=== PATIENT | male | born 1965 | race Caucasian/White ===

== ENCOUNTER 2019-09-15 17:31 | Emergency (ER) | payer BC ==
[~2019-09-15] VITALS: Ht 182.9 cm; Wt 158.8 kg
[2019-09-15 20:06] LABS: ABSOLUTE NEUTROPHILS 2.3 thou/uL (1.4-8.2); BASOPHILS 0.9 % (0.0-2.0); EOSINOPHILS 1.7 % (0.0-3.0); HEMATOCRIT 42.3 % (42.0-52.0); HEMOGLOBIN 14.1 gm/dL (14.0-18.0); LYMPHOCYTES 45.5 % (24.0-44.0); MCH 32.7 pg (26.0-34.0); MCHC 33.4 g/dL (28.0-37.0); MCV 97.7 fL (80.0-100.0); MONOCYTES 7.3 % (1.0-8.0); PLATELET COUNT 266 thou/uL (150-400); POLYS 44.6 % (36.0-66.0); RBC 4.33 mil/uL (4.50-6.00); RDW 13.8 % (10.5-14.5); WBC 5.2 thou/uL (4.0-11.0)
[2019-09-15 20:15] LABS: ANION GAP 6 mmol/L (7-16); BUN 15 mg/dL (7-18); CALCIUM 8.5 mg/dL (8.5-10.1); CHLORIDE 105 mmol/L (98-107); CO2 30 mmol/L (21-32); GLUCOSE 104 mg/dL (74-106); POTASSIUM 3.9 mmol/L (3.5-5.1); SODIUM 141 mmol/L (136-145)
[2019-09-15 20:26] LABS: ALBUMIN 3.7 g/dL (3.4-5.0); SGOT 20 U/L (15-37); SGPT 45 U/L (30-65); TOTAL BILIRUBIN 0.4 mg/dL (0.2-1.0); TOTAL PROTEIN 7.4 g/dL (6.4-8.2); TROPONIN-I <0.06 ng/mL (<0.06)
[2019-09-15 20:34] VITALS: BP 154/80
--- NOTE | 2019-09-16 08:01 | EKG ---
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: [facility] : 1965 Requested By: Kendall Westbrook Order Number: [id number] MD: Dorian Sheikh Measurements Intervals [place] Rate: 60 P: 16 [place]: 213 QRS: -4 QRSD: 105 T: 58 QT: 373 QTc: 373 Interpretive Statements Sinus rhythm Prolonged [place] interval T wave abnormality Compared to ECG 08/16/2008 06:59:48 No significant change was found Electronically Signed On 09-16-2019 8:00:50 CDT by Dorian Sheikh [email or web address] <ELECTRONICALLY SIGNED> By: Dorian Sheikh MD, FACC 09/16/19 0800 1756 1756 Dorian Sheikh MD, [facility] /EPI
== END 2019-09-15 20:34 | disposition home or self-care (01) ==
LOC: ER 17:31
PROVIDERS: Emergency Medicine
DX: R20.2 Paresthesia of skin (principal); R11.0 Nausea

== ENCOUNTER 2019-10-26 09:48 | Emergency (ER) | payer BC ==
[~2019-10-26] VITALS: Ht 182.9 cm; Wt 158.8 kg
[2019-10-26] MEDS ORDERED: PROTONIX40 M2 PO (10:00)
[2019-10-26 10:24] LABS: ABSOLUTE NEUTROPHILS 1.9 thou/uL (1.4-8.2); EOSINOPHILS 1.1 % (0.0-3.0); HEMATOCRIT 42.3 % (42.0-52.0); LYMPHOCYTES 40.6 % (24.0-44.0); MCH 32.6 pg (26.0-34.0); MCHC 33.1 g/dL (28.0-37.0); MCV 98.5 fL (80.0-100.0); MONOCYTES 9.3 % (1.0-8.0); PLATELET COUNT 276 thou/uL (150-400); RBC 4.29 mil/uL (4.50-6.00); RDW 13.2 % (10.5-14.5); WBC 3.9 thou/uL (4.0-11.0)
[2019-10-26 10:36] LABS: ANION GAP 6 mmol/L (7-16); BUN 10 mg/dL (7-18); CALCIUM 8.4 mg/dL (8.5-10.1); CHLORIDE 108 mmol/L (98-107); CO2 30 mmol/L (21-32); CREATININE 0.9 mg/dL (0.7-1.3); GLUCOSE 125 mg/dL (74-106); POTASSIUM 4.1 mmol/L (3.5-5.1); SODIUM 144 mmol/L (136-145)
[2019-10-26 10:42] LABS: ALBUMIN 3.4 g/dL (3.4-5.0); SGOT 16 U/L (15-37); SGPT 39 U/L (30-65); TOTAL BILIRUBIN 0.3 mg/dL (0.2-1.0); TOTAL PROTEIN 7.2 g/dL (6.4-8.2); TROPONIN-I <0.06 ng/mL (<0.06)
[2019-10-26] MEDS ORDERED: CYCLOBENZAPRINE5 MG PO (11:14)
[2019-10-26 11:19] VITALS: BP 143/84
--- NOTE | 2019-10-27 11:55 | EKG ---
[facility] [address] [place] [address] ELECTROCARDIOGRAM REPORT Name: IDALIA CURTIS Room #: DEP [facility]#: [id number] Admission: 10/26/19 Attend Phys: Discharge: 10/26/19 Date of : 61 Report #: [id number] THIS REPORT FOR: cc: SNOW Knight family physician/PCP SNOW Knight family physician/PCP Wilfredo Matute MD [facility] THIS REPORT FOR: //name// [facility] ED Test Date: 2019-10-26 Test Time: 10:06:41 Pat Name: IDALIA CURTIS Department: Room: Gender: Kennel Hand: : 1965 Requested By: Francie Portillo Order Number: [id number] MD: Wilfredo Matute Measurements Intervals [place] Rate: 48 P: 26 [place]: 223 QRS: 7 QRSD: 102 T: 27 QT: 426 QTc: 381 Interpretive Statements Sinus bradycardia Borderline T wave abnormalities J-Point elevation anterior leads Compared to ECG 09/15/2019 17:56:29 Sinus rhythm no longer present T-wave abnormality still present Electronically Signed On 10-27-2019 11:55:25 CDT by Wilfredo Matute [email or web address] <ELECTRONICALLY SIGNED> By: Wilfredo Matute MD, [facility] 10/27/19 1155 1006 1006 Wilfredo Matute MD, [facility] /EPI
== END 2019-10-26 11:19 | disposition home or self-care (01) ==
LOC: ER 09:48
PROVIDERS: Emergency Medicine
DX: R07.89 Other chest pain (principal); M54.10 Radiculopathy, site unspecified; K21.9 Gastro-esophageal reflux disease without esophagitis; Z79.899 Other long term (current) drug therapy

== ENCOUNTER 2019-12-30 08:31 | Emergency (ER) | payer BC ==
[~2019-12-30] VITALS: Ht 182.9 cm; Wt 154.2 kg
[~2019-12-30 08:31] MED LIST: CYCLOBENZAPRINE5 MG PO; PROTONIX40 M2 PO
[2019-12-30] MEDS ORDERED: ESCITALOPRAM OX10 MG PO (08:54)
[2019-12-30] MEDS ORDERED: NORVASC5 MG PO (08:54)
[2019-12-30 09:23] LABS: ABSOLUTE NEUTROPHILS 1.3 thou/uL (1.4-8.2); BASOPHILS 1.7 % (0.0-2.0); EOSINOPHILS 1.4 % (0.0-3.0); HEMATOCRIT 41.4 % (42.0-52.0); HEMOGLOBIN 13.6 gm/dL (14.0-18.0); LYMPHOCYTES 49.7 % (24.0-44.0); MCH 31.5 pg (26.0-34.0); MCHC 32.8 g/dL (28.0-37.0); MONOCYTES 8.9 % (1.0-8.0); PLATELET COUNT 257 thou/uL (150-400); POLYS 38.3 % (36.0-66.0); RBC 4.31 mil/uL (4.50-6.00); RDW 13.3 % (10.5-14.5); WBC 3.5 thou/uL (4.0-11.0)
[2019-12-30 09:45] LABS: ANION GAP 8 mmol/L (7-16); BUN 10 mg/dL (7-18); CALCIUM 8.6 mg/dL (8.5-10.1); CHLORIDE 107 mmol/L (98-107); CO2 26 mmol/L (21-32); GLUCOSE 128 mg/dL (74-106); POTASSIUM 3.8 mmol/L (3.5-5.1); SODIUM 141 mmol/L (136-145)
[2019-12-30 09:56] LABS: ALBUMIN 3.4 g/dL (3.4-5.0); SGOT 16 U/L (15-37); SGPT 32 U/L (30-65); TOTAL BILIRUBIN 0.4 mg/dL (0.2-1.0); TOTAL PROTEIN 6.8 g/dL (6.4-8.2); TROPONIN-I <0.06 ng/mL (<0.06)
--- NOTE | 2019-12-30 10:02 | EKG ---
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 : 1965 Requested By: Frank Dukes Order Number: [id number] MD: Wilfredo Matute Measurements Intervals [place] Rate: 50 P: 4 AR: 224 QRS: -3 QRSD: 98 T: 47 QT: 425 QTc: 388 Interpretive Statements Sinus rhythm Prolonged [place] interval Borderline abnrm T, anterolateral leads Compared to ECG 10/26/2019 10:06:41 First degree AV block now present Sinus bradycardia no longer present T-wave abnormality no longer present Electronically Signed On 12-30-2019 10:02:06 DESIGN TECHNOLOGY TEACHER by Wilfredo Matute [email or web address] <ELECTRONICALLY SIGNED> By: Wilfredo Matute MD, FACC 12/30/19 1002 0854 0854 Wilfredo Matute MD, FAC /EPI
[2019-12-30 10:35] LABS: AMP/METHAMP Negative (Negative); BARBITURATES Negative (Negative); BENZODIAZEPINES Negative (Negative); COCAINE Negative (Negative); METHADONE Negative (Negative); OPIATES Negative (Negative); PCP Negative (Negative)
[2019-12-30] MEDS ORDERED: ATIVAN0.5 M1 PO (10:37)
[2019-12-30 11:13] VITALS: BP 141/90
--- NOTE | 2019-12-31 14:37 | EKG ---
[facility] [address] [place] [address] ELECTROCARDIOGRAM REPORT Name: IDALIA CURTIS Room #: DEP 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: : 1965 Requested By: Frank Dukes Order Number: [id number] : Wilfredo Matute Measurements Intervals [place] Rate: 49 P: -19 OR: 222 QRS: 7 QRSD: 95 T: 64 QT: 489 QTc: 442 Interpretive Statements Sinus bradycardia Prolonged [place] interval Borderline T wave abnormalities Baseline wander in lead(s) I,III,aVR,aVL,aVF,V1,V2,V3,V4,V5,V6 Compared to ECG 10/26/2019 10:06:41 First degree AV block now present ST (T wave) deviation now present T-wave abnormality still present Electronically Signed On 12-31-2019 14:37:27 WAVE SOLDER OFFBEARER by Wilfredo Matute [email or web address] <ELECTRONICALLY SIGNED> By: Wilfredo Matute MD, [facility] 12/31/19 1437 1 Wilfredo Matute MD, [facility] /EPI
== END 2019-12-30 11:14 | disposition home or self-care (01) ==
LOC: ER 08:31
PROVIDERS: Emergency Medicine
DX: F41.8 Other specified anxiety disorders (principal); G89.29 Other chronic pain; R07.9 Chest pain, unspecified; R06.00 Dyspnea, unspecified; R20.2 Paresthesia of skin; K21.9 Gastro-esophageal reflux disease without esophagitis; Z79.899 Other long term (current) drug therapy

== ENCOUNTER 2020-02-12 18:45 | Emergency (ER) | payer BC ==
[~2020-02-12] VITALS: Ht 182.9 cm; Wt 90.7 kg
[~2020-02-12 18:45] MED LIST changes: +ATIVAN0.5 M1 PO; +ESCITALOPRAM OX10 MG PO; +NORVASC5 MG PO
[2020-02-12] MEDS ORDERED: CARAFATE1 GM PO (20:23)
[2020-02-12 23:58] VITALS: BP 138/40
--- NOTE | 2020-02-13 15:16 | EKG ---
[place] [address] [facility] [place] [address] ELECTROCARDIOGRAM REPORT Name: IDALIA CURTIS Room #: DEP [facility]#: [id number] Admission: 02/12/20 Attend Phys: Discharge: 02/12/20 Date of : 61 Report #: [id number] [facility] ED Test Date: 2020-02-12 Test Time: 20:01:36 Pat Name: IDALIA CURTIS Department: Room: Gender: M Briquetter Operator: RANDY : 1965 Requested By: Johnnie Mcpherson Order Number: [id number] MD: Dorian Sheikh Measurements Intervals [place] Rate: 61 P: 20 OR: 209 QRS: -6 QRSD: 100 T: 46 QT: 396 QTc: 399 Interpretive Statements Sinus rhythm Ventricular premature complex Borderline prolonged OR interval Borderline T wave abnormalities Compared to ECG 12/30/2019 08:54:31 Ventricular premature complex(es) now present Electronically Signed On 02-13-2020 15:16:29 MUNICIPAL CLERK by Dorian Sheikh [email or web address] <ELECTRONICALLY SIGNED> By: Dorian Sheikh MD, [facility] 02/13/20 1516 00 00 Dorian Sheikh MD, FACC /EPI
== END 2020-02-12 20:50 | disposition home or self-care (01) ==
LOC: ER 18:45
DX: R10.10 Upper abdominal pain, unspecified (principal); K21.9 Gastro-esophageal reflux disease without esophagitis; Z79.899 Other long term (current) drug therapy; Z20.828 Contact with and (suspected) exposure to other viral communicable diseases

== ENCOUNTER 2020-04-08 11:05 | Emergency (ER) | payer BC ==
[~2020-04-08] VITALS: Ht 182.9 cm; Wt 154.2 kg
[~2020-04-08 11:05] MED LIST changes: +CARAFATE1 GM PO
[2020-04-08 11:41] LABS: ABSOLUTE NEUTROPHILS 2.1 thou/uL (1.4-8.2); BASOPHILS 0.8 % (0.0-2.0); EOSINOPHILS 0.8 % (0.0-3.0); HEMATOCRIT 42.8 % (42.0-52.0); HEMOGLOBIN 14.3 gm/dL (14.0-18.0); LYMPHOCYTES 35.8 % (24.0-44.0); MCH 31.5 pg (26.0-34.0); MCHC 33.3 g/dL (28.0-37.0); MCV 94.5 fL (80.0-100.0); PLATELET COUNT 278 thou/uL (150-400); POLYS 53.6 % (36.0-66.0); RBC 4.53 mil/uL (4.50-6.00); RDW 13.9 % (10.5-14.5); WBC 3.9 thou/uL (4.0-11.0)
[2020-04-08 11:47] LABS: ANION GAP 6 mmol/L (7-16); BUN 13 mg/dL (7-18); CALCIUM 8.8 mg/dL (8.5-10.1); CHLORIDE 104 mmol/L (98-107); CO2 30 mmol/L (21-32); CREATININE 1.1 mg/dL (0.7-1.3); GLUCOSE 127 mg/dL (74-106); POTASSIUM 3.8 mmol/L (3.5-5.1); SODIUM 140 mmol/L (136-145)
[2020-04-08 11:57] LABS: ALBUMIN 3.5 g/dL (3.4-5.0); LIPASE 82 U/L (73-393); SGOT 20 U/L (15-37); SGPT 43 U/L (30-65); TOTAL BILIRUBIN 0.4 mg/dL (0.2-1.0); TOTAL PROTEIN 7.1 g/dL (6.4-8.2); TROPONIN-I <0.06 ng/mL (<0.06)
[2020-04-08 13:10] VITALS: BP 132/82
--- NOTE | 2020-04-08 15:35 | EKG ---
[place] [address] [facility] [employer] [address] ELECTROCARDIOGRAM REPORT Name: IDALIA CURTIS Room #: DEP [facility]#: [id number] Admission: 04/08/20 Attend Phys: Discharge: 04/08/20 Date of : 61 Report #: [id number] [facility] ED Test Date: 2020-04-08 Test Time: 11:14:03 Pat Name: IDALIA CURTIS Department: Room: Gender: M Shredder Picker: JCHAIREZ : 1965 Requested By: Andrew Angelo Order Number: [id number] MD: Wilfredo Matute Measurements Intervals [place] Rate: 58 P: 14 IL: 218 QRS: -7 QRSD: 97 T: 33 QT: 394 QTc: 387 Interpretive Statements Sinus rhythm Prolonged [place] interval Borderline T abnormalities, inferior leads Compared to ECG 02/12/2020 20:01:36 Ventricular premature complex(es) no longer present T-wave abnormality still present Electronically Signed On 04-08-2020 15:35:07 FLORAL CLERK by Wilfredo Matute [email or web address] <ELECTRONICALLY SIGNED> By: Wilfredo Matute MD, [facility] 04/08/20 1535 1114 111 Wilfredo Matute MD, FAC /EPI
== END 2020-04-08 13:10 | disposition home or self-care (01) ==
LOC: ER 11:05
PROVIDERS: Emergency Medicine
DX: R07.9 Chest pain, unspecified (principal); R10.11 Right upper quadrant pain; K21.9 Gastro-esophageal reflux disease without esophagitis; Z79.899 Other long term (current) drug therapy

== ENCOUNTER 2020-05-10 10:50 | Emergency (ER) | payer BC ==
[~2020-05-10] VITALS: Ht 182.9 cm; Wt 154.2 kg
[2020-05-10 11:18] LABS: ABSOLUTE NEUTROPHILS 1.7 thou/uL (1.4-8.2); BASOPHILS 1.2 % (0.0-2.0); EOSINOPHILS 1.4 % (0.0-3.0); HEMATOCRIT 42.6 % (42.0-52.0); HEMOGLOBIN 14.1 gm/dL (14.0-18.0); LYMPHOCYTES 43.1 % (24.0-44.0); MCH 31.3 pg (26.0-34.0); MCV 94.9 fL (80.0-100.0); MONOCYTES 8.5 % (1.0-8.0); PLATELET COUNT 280 thou/uL (150-400); POLYS 45.8 % (36.0-66.0); RBC 4.49 mil/uL (4.50-6.00); WBC 3.6 thou/uL (4.0-11.0)
[2020-05-10 11:24] LABS: ANION GAP 6 mmol/L (7-16); BUN 10 mg/dL (7-18); CALCIUM 8.3 mg/dL (8.5-10.1); CHLORIDE 106 mmol/L (98-107); CO2 30 mmol/L (21-32); CREATININE 0.9 mg/dL (0.7-1.3); GLUCOSE 123 mg/dL (74-106); POTASSIUM 3.8 mmol/L (3.5-5.1); SODIUM 142 mmol/L (136-145)
[2020-05-10 11:35] LABS: ALBUMIN 3.5 g/dL (3.4-5.0); SGOT 14 U/L (15-37); SGPT 30 U/L (16-63); TOTAL BILIRUBIN 0.3 mg/dL (0.2-1.0); TROPONIN-I <0.06 ng/mL (<0.06)
[2020-05-10] MEDS ORDERED: DEXILANT60 MG PO (11:50)
[2020-05-10 12:02] VITALS: BP 127/73
--- NOTE | 2020-05-10 15:25 | EKG ---
[address] [place] [address] ELECTROCARDIOGRAM REPORT Name: IDALIA CURTIS Room #: DEP [facility]#: [id number] Admission: 05/10/20 Attend Phys: Discharge: 05/10/20 Date of : 61 Report #: [id number] [facility] ED Test Date: 2020-05-10 Test Time: 11:14:34 Pat Name: IDALIA CURTIS Department: Room: Gender: M Technology Professional: yudy pink : 1965 Requested By: Morris Bean Order Number: [id number] MD: Sidney Murry Measurements Intervals [place] Rate: 55 P: -2 NC: 248 QRS: -1 QRSD: 109 T: 24 QT: 416 QTc: 398 Interpretive Statements Sinus rhythm Prolonged [place] interval Anterior infarct, age indeterminate Compared to ECG 04/08/2020 11:14:03 Myocardial infarct finding now present T-wave abnormality no longer present Electronically Signed On 05-10-2020 15:25:41 CDT by Sidney Murry [email or web address] <ELECTRONICALLY SIGNED> By: Sidney Murry MD 05/10/20 1525 1114 1114 Sidney Murry MD /ZACK
== END 2020-05-10 12:07 | disposition home or self-care (01) ==
LOC: ER 10:50
PROVIDERS: Emergency Medicine
DX: R55 Syncope and collapse (principal); I10 Essential (primary) hypertension; K21.9 Gastro-esophageal reflux disease without esophagitis; Z79.899 Other long term (current) drug therapy

== ENCOUNTER 2020-07-13 21:45 | Emergency (ER) | payer BC ==
[~2020-07-13] VITALS: Ht 180.3 cm; Wt 154.2 kg
[~2020-07-13 21:45] MED LIST changes: +DEXILANT60 MG PO
[2020-07-14 00:31] LABS: CALCIUM 8.7 mg/dL (8.5-10.1); CREATININE 0.9 mg/dL (0.7-1.3); POTASSIUM 3.4 mmol/L (3.5-5.1)
[2020-07-14 00:37] LABS: ALBUMIN 3.3 g/dL (3.4-5.0); TOTAL BILIRUBIN 0.3 mg/dL (0.2-1.0); TOTAL PROTEIN 7.1 g/dL (6.4-8.2)
[2020-07-14 01:05] VITALS: BP 137/87
== END 2020-07-14 01:00 | disposition home or self-care (01) ==
LOC: ER 21:45
PROVIDERS: Emergency Medicine
DX: I10 Essential (primary) hypertension (principal); R20.2 Paresthesia of skin; K21.9 Gastro-esophageal reflux disease without esophagitis

== ENCOUNTER 2020-09-15 08:28 | Emergency (ER) | payer BC ==
[~2020-09-15] VITALS: Ht 180.3 cm; Wt 163.3 kg
[2020-09-15] MEDS ORDERED: FLUTICASONE PRO16 GM NASAL (08:41)
[2020-09-15 09:03] LABS: HEMATOCRIT 36.9 % (42.0-52.0); HEMOGLOBIN 12.5 gm/dL (14.0-18.0); MCH 31.7 pg (26.0-34.0); MCHC 33.9 g/dL (28.0-37.0); MCV 93.3 fL (80.0-100.0); PLATELET COUNT 217 thou/uL (150-400); RBC 3.96 mil/uL (4.50-6.00); RDW 14.3 % (10.5-14.5); WBC 2.8 thou/uL (4.0-11.0)
[2020-09-15 09:19] LABS: ANION GAP 8 mmol/L (7-16); BUN 12 mg/dL (7-18); CALCIUM 8.5 mg/dL (8.5-10.1); CHLORIDE 104 mmol/L (98-107); CO2 27 mmol/L (21-32); CREATININE 0.8 mg/dL (0.7-1.3); GLUCOSE 137 mg/dL (74-106); POTASSIUM 3.7 mmol/L (3.5-5.1); SODIUM 139 mmol/L (136-145)
[2020-09-15 09:29] LABS: ALBUMIN 3.3 g/dL (3.4-5.0); SGOT 25 U/L (15-37); SGPT 59 U/L (30-65); TOTAL BILIRUBIN 0.5 mg/dL (0.2-1.0); TOTAL PROTEIN 6.8 g/dL (6.4-8.2); TROPONIN-I <0.06 ng/mL (<0.06)
--- NOTE | 2020-09-15 10:02 | EKG ---
[address] [address] ELECTROCARDIOGRAM REPORT Name: IDALIA CURTIS Room #: REG [facility]#: [id number] Admission: 09/15/20 Attend Phys: Discharge: Date of : 61 Report #: [id number] [facility] ED Test Date: 2020-09-15 Test Time: 08:32:50 Pat Name: IDALIA CURTIS Department: Room: Gender: Automation Test Engineer: MIGUEL : 1965 Requested By: Alvin Willams Order Number: [id number] MD: Wilfredo Matute Measurements Intervals [place] Rate: 60 P: 94 [place]: 214 QRS: 1 QRSD: 106 T: 48 QT: 417 QTc: 417 Interpretive Statements Sinus rhythm Prolonged [place] interval Nonspecific T abnrm, anterolateral leads Compared to ECG 05/10/2020 11:14:34 Myocardial infarct finding no longer present Electronically Signed On 09-15-2020 10:01:58 CDT by Wilfredo Matute [email or web address] <ELECTRONICALLY SIGNED> By: Wilfredo Matute MD, [facility] 09/15/20 1001 0832 1 Wilfredo Matute MD, FACC /EPI
[2020-09-15 12:28] LABS: ABSOLUTE NEUTROPHILS 1.4 thou/uL (1.4-8.2); ANISOCYTOSIS SLIGHT; ATYPICAL LYMPHS 1 %
[2020-09-15 12:41] VITALS: BP 158/82
--- NOTE | 2020-09-15 13:08 | EKG ---
[place] [address] [facility] [place] [address] ELECTROCARDIOGRAM REPORT Name: IDALIA CURTIS Room #: DEP [facility]#: [id number] Admission: 09/15/20 Attend Phys: Discharge: 09/15/20 Date of : 61 Report #: [id number] [facility] ED Test Date: 2020-09-15 Test Time: 11:39:35 Pat Name: IDALIA CURTIS Department: Room: Gender: Project Financial Analyst: evelyn moreno : 1965 Requested By: Alvin Willams Order Number: [id number] MD: Dorian Sheikh Measurements Intervals [place] Rate: 50 P: 22 SD: 226 QRS: 4 QRSD: 112 T: 28 QT: 436 QTc: 398 Interpretive Statements Sinus rhythm Prolonged [place] interval Abnormal T, consider ischemia, anterior leads Compared to ECG 09/15/2020 08:32:50 No significant change was found Electronically Signed On 09-15-2020 13:08:15 CDT by Dorian Sheikh [email or web address] <ELECTRONICALLY SIGNED> By: Dorian Sheikh MD, [facility] 09/15/20 1308 1139 1139 Dorian Sheikh MD, [facility] /EPI
== END 2020-09-15 12:43 | disposition home or self-care (01) ==
LOC: ER 08:28
PROVIDERS: Student in an Organized Health Care Education/Training Program
DX: R07.89 Other chest pain (principal); E11.9 Type 2 diabetes mellitus without complications; K21.9 Gastro-esophageal reflux disease without esophagitis; F12.90 Cannabis use, unspecified, uncomplicated; Z85.46 Personal history of malignant neoplasm of prostate; Z79.899 Other long term (current) drug therapy

== ENCOUNTER 2020-12-09 10:30 | Emergency (ER) | payer BC ==
[~2020-12-09] VITALS: Ht 180.3 cm; Wt 162.8 kg
[~2020-12-09 10:30] MED LIST changes: +FLUTICASONE PRO16 GM NASAL
[2020-12-09 10:57] LABS: HEMATOCRIT 37.5 % (42.0-52.0); HEMOGLOBIN 12.3 gm/dL (14.0-18.0); MCH 31.4 pg (26.0-34.0); MCHC 32.8 g/dL (28.0-37.0); MCV 95.7 fL (80.0-100.0); PLATELET COUNT 313 thou/uL (150-400); RBC 3.92 mil/uL (4.50-6.00); RDW 13.6 % (10.5-14.5); WBC 2.8 thou/uL (4.0-11.0)
[2020-12-09] MEDS ORDERED: HYDROCODON-ACE1 EAC7 PO (11:13)
[2020-12-09 11:23] LABS: CALCIUM 8.8 mg/dL (8.5-10.1)
[2020-12-09 11:34] LABS: ALBUMIN 3.3 g/dL (3.4-5.0); TOTAL BILIRUBIN 0.3 mg/dL (0.2-1.0)
[2020-12-09 11:47] LABS: URINE BILIRUBIN NEGATIVE (Negative); URINE BLOOD NEGATIVE (Negative); URINE CLARITY CLEAR; URINE COLOR YELLOW; URINE GLUCOSE-RANDOM* NEGATIVE (Negative); URINE KETONES NEGATIVE (Negative); URINE NITRITE-REFLEX NEGATIVE (Negative); URINE PROTEIN (DIPSTICK) NEGATIVE (Negative); URINE UROBILINOGEN 0.2 E.U./dl (0.2-1.0)
[2020-12-09 11:48] LABS: URINE LEUKOCYTES-REFLEX 1+ (Negative)
[2020-12-09 12:07] LABS: CASTS None Seen /LPF (None Seen); MUCUS 0-3 Light strn/LPF (None Seen); SQUAMOUS >10 Many /LPF (0-3)
[2020-12-09 12:08] LABS: URINE RBC 1-2 Rare /HPF (NONE SEEN); URINE WBC-REFLEX 6-15 Few /HPF (0-5)
[2020-12-09 12:09] LABS: BACTERIA-REFLEX None Seen /HPF (None Seen); CRYSTALS None Seen /LPF (None Seen); WBC CLUMPS Few (None Seen)
[2020-12-09 14:40] VITALS: BP 123/72
--- NOTE | 2020-12-09 15:46 | EKG ---
[place] [address] [facility] [place] [address] ELECTROCARDIOGRAM REPORT Name: IDALIA CURTIS Room #: DEP [facility]#: [id number] Admission: 12/09/20 Attend Phys: Discharge: 12/09/20 Date of : 61 Report #: [id number] [facility] ED Test Date: 2020-12-09 Test Time: 10:48:24 Pat Name: IDALIA CURTIS Department: Room: Gender: Optical Goods Drill Operator: KILLIAN : 1965 Requested By: Paige Fischer Order Number: [id number] MD: Wilfredo Matute Measurements Intervals [place] Rate: 59 P: 30 IN: 223 QRS: -12 QRSD: 172 T: 108 QT: 474 QTc: 470 Interpretive Statements Sinus rhythm Prolonged [place] interval Left bundle branch block Compared to ECG 09/15/2020 11:39:35 Left bundle-branch block now present T-wave abnormality no longer present Possible ischemia no longer present Electronically Signed On 12-09-2020 15:46:18 CDT by Wilfredo Matute [email or web address] <ELECTRONICALLY SIGNED> By: Wilfredo Matute MD, [facility] 12/09/20 1546 1048 1048 Wilfredo Matute MD, [facility] /EPI
[2020-12-09] MEDS ORDERED: PREDNISONE 20 M20 MG PO (20:20)
== END 2020-12-09 14:41 | disposition home or self-care (01) ==
LOC: ER 10:30
PROVIDERS: Emergency Medicine
DX: R51.9 Headache, unspecified (principal); K21.9 Gastro-esophageal reflux disease without esophagitis; Z85.46 Personal history of malignant neoplasm of prostate